=== PATIENT | female | born 1980 | race Hispanic/Latino ===

== ENCOUNTER → 2019-02-08 | Outpatient (CLI) | payer BC | END | disposition home or self-care (01) | LOC: RAH 07:57 | PROVIDERS: ATTEND Internal Medicine | DX: K76.0 Fatty (change of) liver, not elsewhere classified (principal) | CPT/HCPCS: 76705 ==

== ENCOUNTER → 2023-07-07 | Outpatient (CLI) | payer BC | END | disposition home or self-care (01) | LOC: RAH 14:27 | PROVIDERS: ATTEND Internal Medicine Pulmonary Disease | DX: R91.8 Other nonspecific abnormal finding of lung field (principal); Q89.8 Other specified congenital malformations | CPT/HCPCS: 71250 ==